=== PATIENT | female | born 1990 | race American Indian/Alaskan Native ===

== ENCOUNTER 2016-09-09 12:08 | Emergency (ER) | payer OTHER, MEDICAID ==
[2016-09-09 12:27] VITALS: O2SAT 99
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
[2016-09-09] MEDS ORDERED: Bacitracin 500 Units/gm Oint Foilpak UD ONE (13:01)
[2016-09-09] MEDS ORDERED: Tetanus/Diphtheria Toxoids 0.5 ml Syringe IM ONE ×2 (13:50→14:04)
--- NOTE | 2016-09-09 13:50 | RAD ---
PROCEDURE: Left Knee Radiographs. HISTORY: COMPARISON: None available FINDINGS: BONES: No acute displaced fracture. JOINTS: No dislocation. JOINT EFFUSION: No significant joint effusion. OTHER FINDINGS: None. IMPRESSION: No acute displaced fracture or dislocation identified. If symptoms persist, or if there is continued clinical concern, x-ray follow-up in 7-10 days should be considered.
[2016-09-09 14:09] VITALS: BP 124/81; PULSE 78; RESP 20; TEMP 98.5
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
== END 2016-09-09 16:03 | disposition home or self-care (01) ==
LOC: C.EROB 12:08 → C.ER 12:08 → C.EROB 16:03
DX: S30.0XXA Contusion of lower back and pelvis, initial encounter (principal); S80.02XA Contusion of left knee, initial encounter; V79.50XA Passenger on bus injured in collision with unspecified motor vehicles in traffic accident, initial encounter; O26.892 Other specified pregnancy related conditions, second trimester; Z3A.23 23 weeks gestation of pregnancy